=== PATIENT | female | born 1990 | race Caucasian/White ===

== ENCOUNTER 2017-04-06 22:39 | Inpatient (IN) | payer OTHER ==
[~2017-04-06] VITALS: Ht 167.6 cm; Wt 91.3 kg
[2017-04-07 00:52] LABS: HEMATOCRIT 34.9 % (36.0-46.0); MCH 29.3 PG (29.0-34.0); MCHC 33.2 G/DL (30.0-36.0); MCV 88.1 FL (83-99); MEAN PLAT.VOLUME 9.3 uM^3 (9.5-12.4); PLATELET COUNT 316 K/uL (156-360); RBC DIS.WIDTH-CV 12.6 % (11.8-14.6); RBC DIS.WIDTH-SD 40.7 % (39-53); RED BLOOD COUNT 3.96 M/uL (3.80-5.20); WHITE BLOOD COUNT 15.6 K/uL (4.1-10.2)
[2017-04-07 01:08] LABS: CHLORIDE 106 mEq/L (99-109); POTASSIUM 3.8 mEq/L (3.7-5.4); SODIUM 141 mEq/L (136-147)
[2017-04-07] MEDS ORDERED: GABAPENTIN300 MG PO (01:08)
[2017-04-07] MEDS ORDERED: HYDROXYZINE PAM50 MG PO (01:09)
[2017-04-07] MEDS ORDERED: PRAZOSIN HCL2 MG PO (01:09)
[2017-04-07 01:10] LABS: GLUCOSE 134 mg/dL (70-99)
[2017-04-07] MEDS ORDERED: GABAPENTIN800 MG PO (01:10)
[2017-04-07] MEDS ORDERED: MOTRIN800 MG PO (01:10)
[2017-04-07] MEDS ORDERED: ZIPRASIDONE HCL20 MG PO (01:10)
[2017-04-07 01:11] LABS: ANION GAP 13 MEQ/L (2-14)
[2017-04-07] MEDS ORDERED: CLONIDINE HCL0.1 MG PO (01:11)
[2017-04-07] MEDS ORDERED: BENZTROPINE MESY1 MG PO (01:11)
[2017-04-07] MEDS ORDERED: LAMOTRIGINE300 MG PO (01:11)
[2017-04-07] MEDS ORDERED: NAPROXEN500 MG PO (01:12)
[2017-04-07] MEDS ORDERED: LORATADINE10 M2 PO (01:12)
[2017-04-07] MEDS ORDERED: CLONIDINE HCL0.2 MG PO (01:12)
[2017-04-07 01:13] LABS: SERUM ETHYL ALCOHOL < 10 mg/dL
[2017-04-07] MEDS ORDERED: LAMOTRIGINE150 MG PO (01:13)
[2017-04-07 01:14] LABS: GFR ESTIMATE (CALCULATED) > 59 mL/min/
[2017-04-07] MEDS ORDERED: BENZTROPINE ME0.5 MG PO (01:14)
[2017-04-07 01:15] LABS: UREA NITROGEN (BUN) 12 mg/dL (9-23)
[2017-04-07] MEDS ORDERED: NALTREXONE HCL50 MG PO (01:16)
[2017-04-07] MEDS ORDERED: LITHIUM CARBON300 M2 PO (01:16)
[2017-04-07] MEDS ORDERED: ESCITALOPRAM OX20 MG PO (01:17)
[2017-04-07] MEDS ORDERED: INDERAL20 MG PO (01:17)
[2017-04-07] MEDS ORDERED: LATUDA20 MG PO (01:17)
[2017-04-07] MEDS ORDERED: BUSPAR15 MG PO (01:18)
[2017-04-07] MEDS ORDERED: ZIPRASIDONE HCL40 MG PO (01:19)
[2017-04-07] MEDS ORDERED: FLUTICASONE P15.8 ML BOTH NARES (01:20)
[2017-04-07] MEDS ORDERED: COLACE100 MG PO (01:22)
[2017-04-07 01:51] LABS: AMPHETAMINE NEGATIVE (500 ng/mL); BARBITURATES NEGATIVE (200 ng/mL); BENZODIAZEPINES NEGATIVE (150 ng/mL); COCAINE NEGATIVE (150 ng/mL); INTERNAL CONTROLS VALID? YES; METHADONE NEGATIVE (200 ng/mL); METHAMPHETAMINE NEGATIVE (500 ng/mL); OPIATES (MORPHINE) NEGATIVE (100 ng/mL); OXYCODONE NEGATIVE (100 ng/mL); PHENCYCLIDINE NEGATIVE (25 ng/mL); PROPOXYPHENE NEGATIVE (300 ng/mL); THC CANNABINOIDS NEGATIVE (50 ng/mL); TRICYCLIC ANTIDEPRESSANTS NEGATIVE (300 ng/mL)
[2017-04-07 02:18] LABS: QUANTITATIVE HCG < 4.0 MIU/ML
[2017-04-07 04:42] VITALS: BP 87/51
[2017-04-07 05:11] LABS: EOSINOPHIL (%) 0.5 % (0-5); EOSINOPHIL COUNT 0.1 K/uL (0-0.3); IMMATURE GRANULOCYTE (%) 0.4 % (0.0-0.7); IMMATURE GRANULOCYTE COUNT 0.1 K/uL; INSTRUMENT ABS NEUTROPHIL CT 11.9 K/uL; LYMPHOCYTE COUNT 2.7 K/uL (1.0-2.8); MONOCYTE (%) 4.1 % (3-12); MONOCYTE COUNT 0.6 K/uL (0-0.8); NEUTROPHIL COUNT 11.9 K/uL (1.8-6.4)
[2017-04-07 07:37] VITALS: BP 96/55
[2017-04-07 09:49] LABS: ADD MIUA? NO; BILIRUBIN NEGATIVE; BLOOD NEGATIVE; COLOR YELLOW ((YELLOW)); GLUCOSE (STRIP) NEGATIVE; KETONES NEGATIVE; LEUKOCYTES NEGATIVE; NITRITE NEGATIVE; PROTEIN (STRIP) NEGATIVE; SPECIFIC GRAVITY 1.014 (1.000-1.030); UCUL ADDED? NO; UROBILINOGEN 0.2 MG/DL (0.2-1.0)
[2017-04-07 13:38] VITALS: BP 119/83
[2017-04-07 15:17] VITALS: BP 114/71
[2017-04-08 07:48] VITALS: BP 139/80
[2017-04-08 15:20] VITALS: BP 125/78
[2017-04-09 07:45] VITALS: BP 97/56
[2017-04-09 15:47] VITALS: BP 120/73
[2017-04-10 07:59] VITALS: BP 121/66
[2017-04-10 16:01] VITALS: BP 117/56
[2017-04-11 07:36] VITALS: BP 112/63
[2017-04-11 15:17] VITALS: BP 114/73
[2017-04-11 21:11] VITALS: BP 136/73
[2017-04-12 07:45] VITALS: BP 98/54
[2017-04-12] MEDS ORDERED: BUTALB-APAP-CA1 EACH PO (11:44)
== END 2017-04-12 13:29 | disposition home or self-care (01) | DRG 885 ==
LOC: EME 22:39 → 1WEST 04-07 02:11 → EDOF 04-07 02:11 → 1WEST 04-07 04:28
PROVIDERS: Emergency Medicine
DX: F31.4 Bipolar disorder, current episode depressed, severe, without psychotic features (principal); R45.851 Suicidal ideations; R45.4 Irritability and anger; F11.10 Opioid abuse, uncomplicated; G43.909 Migraine, unspecified, not intractable, without status migrainosus; F60.9 Personality disorder, unspecified; F41.9 Anxiety disorder, unspecified; R44.0 Auditory hallucinations; I10 Essential (primary) hypertension; F15.90 Other stimulant use, unspecified, uncomplicated; F17.210 Nicotine dependence, cigarettes, uncomplicated; Z91.19 Patient's noncompliance with other medical treatment and regimen; Z56.0 Unemployment, unspecified
CPT/HCPCS: 80048; 81003; 84702; 85025; 85027; 90839; 97150 GO; 97165 GO; 99281; 99285; G0480; Q0177